=== PATIENT | male | born 1950 | race Caucasian/White ===

== ENCOUNTER 2016-07-17 05:13 | Day surgery (SDC) | payer MEDICARE ==
[2016-07-16 18:41] LABS: HEMOGLOBIN 14.2 g/dL (13.6-17.8)
--- NOTE | ~2016-07-17 | OP ---
Record Of Operation [facility] [address] [place]. [address] NAME: ALEJANDRO STILES : 48 STATUS : [facility]#: [id number] AGE: 66 ADM/REG DATE : 07/17/16 MR#: [id number] REPORT SERV DATE: 07/17/16 DICTATED BY: ALICIA GARCIA DATE: 07/17/16 REPORT STATUS : Draft TRANSCRIBED BY: MODL DATE: 07/17/16 DATE OF PROCEDURE: 07/17/2016 PREOPERATIVE DIAGNOSIS: Left quadriceps tendon rupture. POSTOPERATIVE DIAGNOSIS: Left quadriceps tendon rupture. PROCEDURE: Left quad repair. INDICATIONS: This is a 66-year-old male who had left quad repair several months ago, was doing very well, brace off, [place], slipped, fell, hyperflexed his knee and re-tore his quadriceps. He came in for repair of the same. DESCRIPTION OF PROCEDURE: The patient was taken to the operating room and placed supine on the table in normal fashion without incident. General anesthetic was induced per the anesthesiologist. The patient was then carefully positioned, padded, prepped, and draped in the normal sterile fashion. The left lower extremity was exsanguinated and tourniquet inflated to 350. Sharp dissection was made through the old incision with electrocautery through the fat. The quad was identified. The distal end of the ruptured fragments freshened up sharply as was the superior pole of the patella. The #5 FiberWire was woven up into the quad tendon. There were strands out distally. An eyelet ACL suture passer was passed through the patella longitudinally, three times passing a suture through the medial and lateral one and two sutures through the middle one. These were tied to reapproximate the quad tendon anatomically, was further oversewn with #5 FiberWire. The wound was then closed in a layered fashion and dressed sterilely. The patient was awakened and taken to the postanesthesia care without incident. COMPLICATIONS: None. SPECIMENS: None. ESTIMATED BLOOD LOSS: Trace. WTB/MODL Denver Garcia M.D. / [id number] CC: Tony Hanson MD
[~2016-07-17 05:13] MED LIST: ACET500CAP PO; COSAMIN DS1 TAB PO; FISH OIL1200 MG PO; GLUCCHONDR PO; LIPITOR20 PO; PLAQ200B PO; TYLENOL ARTH650 MG PO; VOLT75 PO
[2016-07-17 11:46] LABS: CALCIUM, SERUM 8.6 MG/DL (8.5-10.4); CHLORIDE, SERUM 105 MMOL/L (96-112); CO2 (CARBON DIOXIDE) 28 MMOL/L (24-34); CREATININE 0.91 MG/DL (0.70-1.30); FREE T4 1.04 NG/DL (0.76-1.46); GFR AFRICAN AMERICAN 101 ML/MIN (>=60); GFR NON AFRICAN AMERICAN 87 ML/MIN (>=60); GLUCOSE, SERUM 108 MG/DL (60-99); POTASSIUM, SERUM 4.1 MMOL/L (3.5-5.3); SODIUM, SERUM 142 MMOL/L (135-148)
[2016-07-17 11:48] LABS: BUN (BLOOD UREA NITROGEN) 19 MG/DL (6-23)
== END 2016-07-17 14:43 | disposition home or self-care (01) ==
LOC: SDC 05:13
PROVIDERS: Internal Medicine Cardiovascular Disease; Specialist
PROC: 0LMR0ZZ Reattachment of Left Knee Tendon, Open Approach (ICD-10-PCS; principal; 2016-07-17 06:45)
DX: S76.112A Strain of left quadriceps muscle, fascia and tendon, initial encounter (principal); W01.0XXA Fall on same level from slipping, tripping and stumbling without subsequent striking against object, initial encounter; Y93.02 Activity, running; Y92.79 Other farm location as the place of occurrence of the external cause; E78.00 Pure hypercholesterolemia, unspecified; M06.9 Rheumatoid arthritis, unspecified; H91.92 Unspecified hearing loss, left ear; Z88.5 Allergy status to narcotic agent; Z88.8 Allergy status to other drugs, medicaments and biological substances; Z79.1 Long term (current) use of non-steroidal anti-inflammatories (NSAID); Z79.899 Other long term (current) drug therapy; Z98.890 Other specified postprocedural states
CPT/HCPCS: 80048; 83735; 84439; 84443; 85014; 85018; 93005; 93306; A9270-GY; J0690; J2250; J2270; J2405; J2550; J2710; J3010